=== PATIENT | male | born 2000 | race African-American/Black ===

== ENCOUNTER 2019-08-16 00:12 | Emergency (ER) | payer SELFPAY ==
[~2019-08-16] VITALS: Ht 182.9 cm; Wt 86.2 kg
--- NOTE | 2019-08-16 00:16 | NUR ---
PT BIB [facility] TO ER BED 12
[2019-08-16 00:20] VITALS: BP 127/67
[2019-08-16] MEDS ORDERED: LORazepam 2 MG/ML VIAL IM ONE (00:45)
--- NOTE | 2019-08-16 00:45 | NUR ---
pt biba c/o anxiety x 2hr ago. pt states he was shaking, and was frozen, couldnt move, sob, couldnt feel his legs or hands. pt has a montalvo and rates it as 10/10 throbbing sensation. pt states he smoked marijuana at 1999. aunt called the paramedics. lung sounds clear all throughout. heart sound s1s2 present. no distress noted. no sob. no use of accessory. pt is a & ox4. clear speech. nka. no pmh.
--- NOTE | 2019-08-16 01:03 | NUR ---
FLU SWAB COLLECTED AND SENT TO LAB.
[2019-08-16 01:57] VITALS: BP 126/64
--- NOTE | 2019-08-16 01:57 | NUR ---
Patient discharged with v/s stable. Written and verbal after care instructions given and explained. Patient verbalized understanding. Ambulatory with steady gait. All questions addressed prior to discharge. Advised to follow up with PMD.
== END 2019-08-16 01:57 | disposition home or self-care (01) ==
LOC: MED 00:12
DX: J06.9 Acute upper respiratory infection, unspecified (principal); F41.9 Anxiety disorder, unspecified; F12.90 Cannabis use, unspecified, uncomplicated; Z71.6 Tobacco abuse counseling
CPT/HCPCS: 87804; 96372; 99283; J2060